=== PATIENT | female | born 1955 | race Hispanic/Latino ===

== ENCOUNTER → 2020-06-11 | Outpatient (CLI) | payer OTHER | END | disposition home or self-care (01) | LOC: SHCH 10:00 | PROVIDERS: ATTEND Internal Medicine | DX: I35.0 Nonrheumatic aortic (valve) stenosis (principal); R55 Syncope and collapse; R01.1 Cardiac murmur, unspecified | CPT/HCPCS: 93306; 93356 ==

== ENCOUNTER → 2020-06-14 | Outpatient (CLI) | payer OTHER ==
[2020-06-14 16:25] LABS: BASOPHILS % (AUTO) 0.5 % (0.0-5.0); EOSINOPHILS % (AUTO) 4.7 % (0.0-8.0); HEMATOCRIT 42.2 % (36-48); LYMPHOCYTES % (AUTO) 31.8 % (21.0-51.0); MEAN CORPUSCULAR HEMOGLOBIN 28.9 pg (27.0-33.0); MEAN CORPUSCULAR HGB CONC 32.7 g/dL (32.0-36.0); MEAN CORPUSCULAR VOLUME 88.5 fL (79-99); MONOCYTES % (AUTO) 8.3 % (3.0-13.0); NEUTROPHILS % (AUTO) 54.5 % (40.0-77.0); PLATELET COUNT (AUTO) 232 K/uL (130-400); RED BLOOD CELL COUNT(AUTO) 4.77 MIL/uL (4.00-5.50); RED CELL DISTRIBUTION WIDTH 13.3 % (11.0-15.5); WHITE BLOOD COUNT (AUTO) 6.5 K/uL (4.8-10.8)
[2020-06-14 16:31] LABS: APPEARANCE,URINE Clear (CLEAR); BILIRUBIN,URINE Negative (NEGATIVE); COLOR,URINE Yellow (YELLOW); GLUCOSE, URINE (UA) Negative (NEGATIVE); KETONES,URINE Negative (NEGATIVE); LEUKOCYTE ESTERASE ,URINE Small (NEGATIVE); NITRATE,URINE Negative (NEGATIVE); OCCULT BLOOD,URINE Negative (NEGATIVE); PH,URINE 7.5 (5.0-8.0); PROTEIN,URINE Negative (NEGATIVE); UROBILINOGEN,URINE 0.2 mg/dL (0.2-1.0)
[2020-06-14 16:37] LABS: CREATININE 0.7 mg/dL (0.5-1.5)
[2020-06-14 16:41] LABS: INR 1.01 (0.85-1.15)
[2020-06-14 16:42] LABS: PARTIAL THROMBOPLASTIN TIME 27.3 SEC (26.3-35.5)
[2020-06-14 18:05] LABS: BACTERIA,URINE Rare /HPF (None Seen); RBC,URINE None Seen /HPF (0-1); SQUAMOUS EPITHELIAL CELL,UR None Seen /HPF (0-2); WBC,URINE 0-1 /HPF (0-1)
== END ==
LOC: DAH 10:00 → EDSTATUS 15:15
PROVIDERS: ATTEND Internal Medicine
DX: Z01.818 Encounter for other preprocedural examination (principal); I35.0 Nonrheumatic aortic (valve) stenosis; Z79.01 Long term (current) use of anticoagulants
CPT/HCPCS: 36415; 71045; 80048; 81001; 85025; 85610; 85730; 93005; A6260

== ENCOUNTER → 2020-07-22 | Outpatient (CLI) | payer OTHER ==
[~2020-07-22] MED LIST: IOHEXOL 350 MG/ML 100ML INFUS..BTL IV ONE
== END | disposition home or self-care (01) ==
LOC: RAH 07:36
PROVIDERS: ATTEND Internal Medicine
DX: K42.9 Umbilical hernia without obstruction or gangrene (principal); I35.0 Nonrheumatic aortic (valve) stenosis; M47.816 Spondylosis without myelopathy or radiculopathy, lumbar region; Z90.49 Acquired absence of other specified parts of digestive tract
CPT/HCPCS: 74174; 75574; Q9967

== ENCOUNTER → 2021-09-04 | Outpatient (CLI) | payer OTHER | END | disposition home or self-care (01) | LOC: OIH 09:45 | PROVIDERS: ATTEND Internal Medicine | DX: I34.8 Other nonrheumatic mitral valve disorders (principal); E11.9 Type 2 diabetes mellitus without complications; I10 Essential (primary) hypertension; E66.9 Obesity, unspecified; R55 Syncope and collapse; Z95.3 Presence of xenogenic heart valve | CPT/HCPCS: 93306 ==